=== PATIENT | male | born 1945 | race Caucasian/White ===

== ENCOUNTER 2018-07-04 09:12 | Outpatient (CLI) | payer MEDICARE, OTHER ==
--- NOTE | 2018-07-04 13:29 | Ultrasound Report ---
Reason: ENCTR FOR SCREENING FOR CARDIOVASCULAR DISORDERS Procedure Date: 07/04/2018 Accession Number: [id number] / [id number] Procedure: US - Aorta Screening CPT Code: FULL RESULT: EXAM: AORTIC DOPPLER ULTRASOUND EXAM DATE: 07/04/2018 10:19 AM. CLINICAL HISTORY: Encounter for screening for cardiovascular disorders. COMPARISON: None. TECHNIQUE: Real-time sonographic imaging of retroperitoneal vascular structures, including color-flow, Doppler flow and spectral analysis was performed by the turner off. Multiple warehouse representative static images were saved for review. FINDINGS: Aorta: The abdominal aorta was adequately visualized. Mild atherosclerotic plaque formation is seen. No evidence for abdominal aortic aneurysm. Aorta: Proximal: Sagittal AP: 2.9 cm. Mid: Transverse: 2.7 x 2.8 cm. Distal: Transverse: 1.9 x 2.2 cm. Caliber WNL: Yes. Plaque visualized: Yes. Iliacs: Right Iliac: Transverse: 1.9 x 1.9 cm. Left Iliac: Transverse: 1.9 x 2.0 cm. Iliac Vessels: The visualized proximal common iliac arteries demonstrate mild fusiform aneurysmal dilatation measuring up to 1.9 cm on the right and 2.0 cm on the left. Other: None. IMPRESSION: 1. Mild atherosclerotic disease of the abdominal aorta without aneurysmal dilatation. 2. Mild aneurysmal dilatation of the common iliac arteries measuring up to 2.0 cm. RADIA
== END 2018-07-04 09:13 | disposition home or self-care (01) ==
LOC: DI 09:12
PROVIDERS: ATTEND Internal Medicine
DX: Z13.6 Encounter for screening for cardiovascular disorders (principal); I70.0 Atherosclerosis of aorta; I72.3 Aneurysm of iliac artery
CPT/HCPCS: 76706

== ENCOUNTER 2019-05-28 12:53 | Outpatient (CLI) | payer MEDICARE, OTHER ==
--- NOTE | 2019-05-29 09:17 | MRI Report ---
Reason: POLYNEUROPATHIES, RULE OUT LUMBAR COMPRESSION Procedure Date: 05/28/2019 Accession Number: [id number] / [id number] Procedure: MRI - Lumbar Spine W/O CPT Code: FULL RESULT: EXAM: MRI LUMBAR SPINE WITHOUT CONTRAST EXAM DATE: 05/28/2019 01:56 PM. CLINICAL HISTORY: Polyneuropathies, rule out lumbar compression. COMPARISON: None. TECHNIQUE: Multiplanar, multisequence T1-weighted and fluid-sensitive sequences of the lumbar spine from T12 to S1 without contrast. Other: None. FINDINGS: There is normal alignment of the lumbar spine. The conus terminates at T12-L1. There is desiccation of the disk spaces throughout the lumbar spine. There is mild endplate spondylosis demonstrated throughout the lumbar spine. There is a mild decrease in the height of the disk at T12-L1, moderate to severe at L1-L2, mild at L2-L3, moderate at L3-L4, and moderate to severe at L4-L5. The abdominal aorta is of normal caliber. There are multiple T2 hyperintense lesions of the interpolar and inferior poles of the bilateral kidneys consistent with multiple parapelvic cyst. There is also a simple appearing renal cyst of the interpolar region of the left kidney. There is no evidence of hydronephrosis. T12-L1: There is no significant disk bulge, central or foraminal stenosis. The facets are normal. L1-L2: There is a broad-based disk osteophyte complex eccentric to the left with a superimposed left paracentral extrusion. There is a mild central canal stenosis. The facets are normal. There is moderate left and mild right neural foraminal narrowing. L2-L3: There is a small disk osteophyte complex with a right paracentral extrusion of the disk producing a mild central canal stenosis. There is minimal left facet arthropathy. There is mild right and left neural foraminal narrowing. L3-L4: There is a small disk osteophyte complex abutting the sac. There is a mild central canal stenosis. The facets are normal. There is mild right and mild to moderate left foraminal stenoses. L4-L5: There is a broad-based disk osteophyte complex abutting the sac. There is a mild central canal stenosis. There is mild right facet arthropathy. There is moderate right and mild left foraminal stenosis. L5-S1: There is mild to moderate right facet arthropathy. There is a minimal disk bulge abutting the sac without significant central canal stenosis. There is no significant foraminal stenosis. IMPRESSION: 1. There is a broad-based disk osteophyte complex eccentric to left with superimposed left paracentral extrusion at L1-L2 producing a mild central canal stenosis. 2. There is a small disk osteophyte complex with a right paracentral extrusion of the disk at L2-L3 producing a mild central canal stenosis. 3. There is a mild central canal stenosis from a small disk osteophyte complex at L3-L4. 4. There is a mild central canal stenosis from a broad-based disk osteophyte complex at L4-L5. Comment: The following findings are so common in adults without low back pain that while we report their presence, they must be interpreted with caution and in the context of the clinical situation. (Reference Jacquelynk et al, Spine 2001) Prevalence of findings in patients without low back pain: Disk degeneration (any evidence): 92% Disk desiccation/T2 signal loss: 83% Disk height loss: 56% Disk bulge: 64% Disk protrusion: 32% Annular tear/high intensity zone: 38% RADIA
== END 2019-05-28 12:54 | disposition home or self-care (01) ==
LOC: DI 12:53
PROVIDERS: ATTEND Physical Medicine & Rehabilitation
DX: M51.26 Other intervertebral disc displacement, lumbar region (principal); M21.372 Foot drop, left foot; M48.061 Spinal stenosis, lumbar region without neurogenic claudication; M25.78 Osteophyte, vertebrae; G62.9 Polyneuropathy, unspecified
CPT/HCPCS: 72148

== ENCOUNTER 2019-06-19 14:42 | Outpatient (CLI) | payer MEDICARE, OTHER | END 2019-06-19 14:43 | disposition home or self-care (01) | LOC: DI 14:42 | DX: Z53.9 Procedure and treatment not carried out, unspecified reason (principal) ==

== ENCOUNTER 2019-08-17 23:32 | Outpatient (CLI) | payer MEDICARE, OTHER | END 2019-08-17 23:59 | disposition critical access hospital (66) | LOC: EMS 23:32 | PROVIDERS: ATTEND Surgery | DX: R06.00 Dyspnea, unspecified (principal) | CPT/HCPCS: A0425; A0429 ==

== ENCOUNTER 2019-08-17 23:47 | Emergency (ER) | payer MEDICARE, OTHER ==
--- NOTE | 2019-08-18 00:09 | ED Physician Documentation ---
PD HPI DYSPNEA - Stated complaint Stated Complaint: SOA - Chief complaint Chief Complaint: Resp - History obtained from History obtained from: Patient, Family - History of Present Illness Timing - onset: Today Timing - onset during: Rest Timing - duration: Hours Timing - details: Gradual onset, Still present Inciting event(s): Other (patient with ALS) Improved by: BiPAP / CPAP Worsened by: Exertion Similar symptoms before: Diagnosis (respiratory failure secondary to ALS) Recently seen: Surgery - Additional information Additional information: 74-year-old male who is on BiPAP for ALS has had a procedure done the day before yesterday to have a feeding tube placed. He was discharged from [facility] and sent back to home doing well. He is on BiPAP and this evening he is feeling that he cannot get a full deep breath. He does not otherwise feel ill and nothing specific otherwise is changed. He has not started to use the feeding button and he had this procedure done under local anesthetic. PD PAST MEDICAL HISTORY - Past Medical History Past Medical History: Yes Respiratory: Other Neuro: Other Other Past Medical History: hx of ALS, Bipap use - Past Surgical History Past Surgical History: Yes - Present Medications Home Medications: Ambulatory Orders Medication Instructions Recorded Confirmed Azithromycin [Zithromax] 250 mg PO DAILY #6 tablet 08/18/19 Primidone [Mysoline] 08/18/19 Tamsulosin [Flomax] 1 cap DAILY 08/18/19 08/18/19 - Allergies Allergies/Adverse Reactions: Allergies Allergy/AdvReac Type Severity Reaction Status Date / Time No Known Drug Allergies Allergy Verified 08/18/19 00:04 - Social History Does the pt smoke?: No Smoking Status: Never smoker PD ED PE NORMAL - Vitals Vital signs reviewed: Yes (diastolic hypertension and hypoxia on room air) - General General: Alert and oriented X 3, Well developed/nourished, Other (The patient is wearing a BIPAP mask and appears midly anxious ) - HEENT HEENT: Atraumatic, PERRL, EOMI, Other (minimal erythema to the right TM and mild to the left along the umbo which demonstrates rounding. mucous membranes are dry. ) - Neck Neck: Supple, no meningeal sign, No bony TTP - Cardiac Cardiac: RRR, No murmur - Respiratory Respiratory: No respiratory distress, Clear bilaterally - Abdomen Abdomen: Soft, Non tender, Other (There is a fresh surgical site with a feeding tube in place that is not being used yet. ) - Back Back: No CVA TTP, No spinal TTP - Derm Derm: Normal color, Warm and dry, No rash - Extremities Extremities: Other (There is muscular atrophy noted to the thenar eminance bilaterally ) - Neuro Neuro: Alert and oriented X 3, luncheonette operator 2-12 intact, Normal speech Eye Opening: Spontaneous Motor: Obeys Commands Verbal: Oriented GCS Score: 15 - Psych Psych: Other (mood is mildly anxious and the affect is blunted. ) Results - Vitals Vitals: Vital Signs - 24 hr 08/17/19 08/18/19 08/18/19 23:48 00:23 01:00 Temperature 36.6 C Heart Rate 71 94 76 Respiratory 20 22 Rate Blood Pressure 114/93 H 129/106 H O2 Saturation 91 L 97 96 08/18/19 08/18/19 08/18/19 01:30 01:45 03:07 Temperature Heart Rate 102 H 101 H 97 Respiratory 19 23 21 Rate Blood Pressure 137/93 H 118/90 H O2 Saturation 97 88 L 96 Oxygen O2 Source BIPAP - Labs Labs: Laboratory Tests 08/18/19 08/18/19 08/18/19 00:15 00:15 00:30 WBC 7.3 RBC 5.17 Hgb 16.1 Hct 47.8 MCV 92.5 MCH 31.1 H MCHC 33.7 RDW 15.3 H Plt Count 183 MPV 9.0 Neut # (Auto) 4.7 Lymph # (Auto) 1.7 Rowan # (Auto) 0.7 Eos # (Auto) 0.1 Baso # (Auto) 0.0 Absolute Nucleated RBC 0.00 Nucleated RBC % 0.0 Bld Gas Analysis Time Sample Site ABG pH ABG pCO2 ABG pO2 ABG HCO3 ABG Total CO2 ABG O2 Saturation ABG Base Excess Austyn Test VBG pH 7.394 VBG pCO2 30.7 L VBG pO2 54.4 H VBG HCO3 18.3 L VBG Total CO2 19.3 L VBG O2 Saturation 89.6 H VBG Base Excess -5.0 L Room Air O2 Delivery Device FiO2 Pressure Support Vent EPAP IPAP Sodium 137 Potassium 3.8 Chloride 106 Carbon Dioxide 21 Anion Gap 10.0 BUN 20 Creatinine 0.6 Estimated GFR (MDRD) 132 Glucose 112 H Calcium 9.5 Total Bilirubin 0.8 AST 30 ALT 42 Alkaline Phosphatase 58 Total Protein 7.1 Albumin 3.9 Globulin 3.2 Albumin/Globulin Ratio 1.2 Lipase 45 Urine Color Urine Clarity Urine pH Ur Specific [place] Urine Protein Urine Glucose (UA) Urine Ketones Urine Occult Blood Urine Nitrite Urine Bilirubin Urine Urobilinogen Ur Leukocyte Esterase Ur Microscopic Review Urine Culture Comments 08/18/19 08/18/19 00:47 01:45 WBC RBC Hgb Hct MCV MCH MCHC RDW Plt Count MPV Neut # (Auto) Lymph # (Auto) Rowan # (Auto) Eos # (Auto) Baso # (Auto) Absolute Nucleated RBC Nucleated RBC % Bld Gas Analysis Time 0051 Sample Site RIGHT RADIAL ABG pH 7.43 ABG pCO2 31 L ABG pO2 58 L ABG HCO3 20.3 L ABG Total CO2 21.3 ABG O2 Saturation 91 L ABG Base Excess -2.6 L Austyn Test POSITIVE VBG pH VBG pCO2 VBG pO2 VBG HCO3 VBG Total CO2 VBG O2 Saturation VBG Base Excess Room Air YES O2 Delivery Device BiPAP FiO2 21.00 Pressure Support Vent 7 EPAP 5 IPAP 12 Sodium Potassium Chloride Carbon Dioxide Anion Gap BUN Creatinine Estimated GFR (MDRD) Glucose Calcium Total Bilirubin AST ALT Alkaline Phosphatase Total Protein Albumin Globulin Albumin/Globulin Ratio Lipase Urine Color YELLOW Urine Clarity CLEAR Urine pH 5.5 Ur Specific [place] >=1.030 H Urine Protein NEGATIVE Urine Glucose (UA) NEGATIVE Urine Ketones 15 H Urine Occult Blood NEGATIVE Urine Nitrite NEGATIVE Urine Bilirubin NEGATIVE Urine Urobilinogen 0.2 (NORMAL) Ur Leukocyte Esterase NEGATIVE Ur Microscopic Review NOT INDICATED Urine Culture Comments NOT INDICATED - Rads (name of study) chest Radiology: Prelim report reviewed (Impression: No evidence of acute cardiopulmonary process.), EMP read indepedently, See rad report Procedures - IVC sono (time) 0055 Bedside IVC sono: IVC measures (cm) (1.10), Dehydration (est 1+ liter deficit) PD MEDICAL DECISION MAKING - ED course Complexity details: reviewed old records, reviewed results, re-evaluated patient, considered differential, d/w patient, d/w family ED course: 74-year-old male with ALS that is rapidly progressing is on BiPAP at home and he is feeling this evening that he is having a more difficult time getting a breath. His oxygen saturation is dropped into the 92-93 range and when he arrives to the emergency department his respiratory circuit is evaluated and appears to be adequately placed. Adjustments to the trilogy were made by respiratory therapy,the "I" time was decreased from 3 to 1 leaving the patient to get more air with start of respiration and able to take more frequent assisted breaths with a longer exhale time. There is no evidence of pneumonia on x-ray but the patient does have a new cough and evidence of OM on exam. He is dehydrated on interrogation of the IVC (mild est at just over one liter). We attempted to place an IV and after 4 attempts we abandoned this in favor of IM medications and oral hydration. The patient does have a hard time with oral hydration. I suspect the OM is the lokie driver this evening for the patient not feeling well and his level of dehydration is not severe. We have treated the OM aggressively with decadron and IM rocephin and we will place him on a course of azithro. He has a PEG tube in place and we are expecting that he will be able to begin using this with training in the next 1-2 days. I personally supervised the patient taking oral fluids and he was able to easily take 12 ounces over a 10 minute period with assistance. Departure - Departure Disposition: 01 Home, Self Care Clinical Impression: Dehydration Otitis media Qualifiers: Otitis media type: suppurative Chronicity: acute Laterality: left Recurrence: non-recurrent Spontaneous tympanic membrane rupture: without spontaneous rupture Qualified Code(s): H66.002 - Acute suppurative otitis media without spontaneous rupture of ear drum, left ear Condition: Stable Instructions: ED Dehydration, ED Otitis Media Acute Adult Follow-Up: Abe Haile MD [Primary Care Provider] - Prescriptions: Azithromycin [Zithromax] 250 mg PO DAILY #6 tablet Discharge Date/Time: 08/18/19 03:24
[2019-08-18 00:24] LABS: BASOPHILS % (AUTO) 0.6 %; EOSINOPHILS # (AUTO) 0.1 10^3/uL (0.0-0.7); HGB - HEMOGLOBIN 16.1 g/dL (14.0-18.0); LYMPHOCYTES # (AUTO) 1.7 10^3/uL (1.5-3.5); LYMPHOCYTES % (AUTO) 23.8 %; MEAN CORPUSCULAR HEMOGLOBIN 31.1 pg (27.0-31.0); MEAN CORPUSCULAR HGB CONC 33.7 g/dL (32.0-36.0); MEAN CORPUSCULAR VOLUME 92.5 fL (80.0-94.0); MONOCYTES # (AUTO) 0.7 10^3/uL (0.0-1.0); MONOCYTES % (AUTO) 9.6 %; NEUTROPHILS # (AUTO) 4.7 10^3/uL (1.5-6.6); NEUTROPHILS % (AUTO) 64.7 %; PLT - PLATELET COUNT 183 10^3/uL (130-450); RED BLOOD COUNT 5.17 10^6/uL (4.70-6.10); RED CELL DISTRIBUTION WIDTH 15.3 % (12.0-15.0); WHITE BLOOD COUNT 7.3 x10^3/uL (4.8-10.8)
--- NOTE | 2019-08-18 00:32 | XRAY Report ---
Reason: dyspnea Procedure Date: 08/18/2019 Accession Number: [id number] / [id number] Procedure: XR - Chest 1 View X-Ray CPT Code: 07408 Final Report FULL RESULT: EXAM: CHEST RADIOGRAPHY EXAM DATE: 08/18/2019 12:24 AM. CLINICAL HISTORY: Dyspnea. COMPARISON: None. TECHNIQUE: 1 view. FINDINGS: Lungs/Pleura: No focal opacities evident. No pulmonary edema. No pleural effusion. No pneumothorax. Mediastinum: Within exam limitations, the cardiomediastinal contour is normal. Other: None. IMPRESSION: No evidence of acute cardiopulmonary process. RADIA
[2019-08-18 00:37] LABS: ALBUMIN 3.9 g/dL (3.2-5.5); ALBUMIN/GLOBULIN RATIO 1.2 (1.0-2.2); BILIRUBIN,TOTAL 0.8 mg/dL (0.2-1.0); CALCIUM 9.5 mg/dL (8.5-10.3); CREATININE 0.6 mg/dL (0.6-1.2); TOTAL PROTEIN 7.1 g/dL (6.7-8.2)
[2019-08-18 00:37] LABS: VBG PCO2 30.7 mmHg (41-51); VBG PH 7.394 (7.31-7.41); VBG PO2 54.4 mmHg (25-47); VBG TOTAL CO2 19.3 mmol/L (24-29)
[2019-08-18] MEDS ORDERED: DEXAMETHASONE 10 MG/ML VIAL IVP STA (01:02)
[2019-08-18] MEDS ORDERED: SODIUM CHLORIDE 0.9% 1,000 ML IV ONE (01:02)
[2019-08-18] MEDS ORDERED: cefTRIAXone 1 GM in SODIUM CHLORIDE 0.9% MINIBAG 100 ML IV STA (01:03)
[2019-08-18 01:43] LABS: ABG BASE EXCESS -2.6 mmol/L (-2.0-3.0); ABG HCO3 20.3 mmol/L (22.0-26.0); ABG OXYGEN SATURATION 91 % (94-98); ABG PCO2 31 mmHg (34-45); ABG PH 7.43 (7.35-7.45); ABG PO2 58 mmHg (80-100); ABG TCO2 21.3 MMOL/L (21.0-29.0); ALLEN TEST POSITIVE
[2019-08-18] MEDS ORDERED: DEXAMETHASONE 10 MG/ML VIAL IM STA (01:46)
[2019-08-18] MEDS ORDERED: cefTRIAXone 1 GM VIAL IM STA (01:46)
[2019-08-18] MEDS ORDERED: LIDOCAINE 1% 2 ML VIAL MC ONE (01:46)
[2019-08-18] MEDS ORDERED: LIDOCAINE 1% 2 ML VIAL ONE (01:50)
[2019-08-18 01:53] LABS: BILIRUBIN,URINE NEGATIVE (NEGATIVE); GLUCOSE, URINE (UA) NEGATIVE (NEGATIVE); KETONES,URINE (UA) 15 mg/dL (NEGATIVE); LEUKOCYTE ESTERASE, URINE NEGATIVE (NEGATIVE); NITRITE,URINE NEGATIVE (NEGATIVE); OCCULT BLOOD,URINE NEGATIVE (NEGATIVE); PH,URINE 5.5 PH (5.0-7.5); PROTEIN,URINE NEGATIVE (NEGATIVE); UROBILINOGEN,URINE 0.2 (NORMAL) E.U./dL (NORMAL)
[2019-08-18 01:54] LABS: CLARITY,URINE CLEAR (CLEAR)
[2019-08-18 03:08] VITALS: BP 118/90
== END 2019-08-18 03:24 | disposition home or self-care (01) ==
LOC: EDUNIT# → ED 23:47
DX: R09.02 Hypoxemia (principal); H66.002 Acute suppurative otitis media without spontaneous rupture of ear drum, left ear; E86.0 Dehydration; G12.21 Amyotrophic lateral sclerosis; Z93.1 Gastrostomy status
CPT/HCPCS: 36415; 36600; 71045; 80053; 81001; 81003; 82803; 83690; 85025; 87086; 96372; 99281; 99284

== ENCOUNTER 2019-09-10 19:34 | Outpatient (CLI) | payer MEDICARE, OTHER | END 2019-09-10 19:35 | disposition EMS.NT | LOC: EMS 19:34 | PROVIDERS: ATTEND Surgery ==